=== PATIENT | male | born 1945 | race Caucasian/White ===

== ENCOUNTER 2016-07-14 11:11 | Outpatient (CLI) | payer MEDICARE, OTHER | END 2016-07-14 11:12 | disposition home or self-care (01) | DX: Z01.812 Encounter for preprocedural laboratory examination (principal); R73.09 Other abnormal glucose; N39.0 Urinary tract infection, site not specified ==

== ENCOUNTER 2016-10-27 09:07 | Outpatient (CLI) | payer MEDICARE, OTHER ==
[2016-10-27 12:38] LABS: BASOPHILS % (AUTO) 0.7 %; EOSINOPHILS # (AUTO) 0.1 10^3/uL (0.0-0.7); EOSINOPHILS % (AUTO) 2.9 %; HCT - HEMATOCRIT 32.8 % (42.0-52.0); HGB - HEMOGLOBIN 11.2 g/dL (14.0-18.0); LYMPHOCYTES # (AUTO) 1.1 10^3/uL (1.5-3.5); LYMPHOCYTES % (AUTO) 22.2 %; MEAN CORPUSCULAR HEMOGLOBIN 31.6 pg (27.0-31.0); MEAN CORPUSCULAR VOLUME 92.7 fL (80.0-94.0); MONOCYTES # (AUTO) 0.4 10^3/uL (0.0-1.0); MONOCYTES % (AUTO) 7.7 %; NEUTROPHILS # (AUTO) 3.4 10^3/uL (1.5-6.6); NEUTROPHILS % (AUTO) 66.5 %; RED BLOOD COUNT 3.53 10^6/uL (4.70-6.10); RED CELL DISTRIBUTION WIDTH 13.3 % (12.0-15.0); UNCORRECTED WHITE BLOOD COUNT 5.1 x10^3/uL; WHITE BLOOD COUNT 5.1 x10^3/uL (4.8-10.8)
[2016-10-27 12:43] LABS: ALBUMIN/GLOBULIN RATIO 1.2 (1.0-2.2); BILIRUBIN,TOTAL 0.5 mg/dL (0.2-1.0); CALCIUM 9.3 mg/dL (8.5-10.3); CREATININE 1.3 mg/dL (0.6-1.2); TOTAL PROTEIN 7.4 g/dL (6.7-8.2)
== END 2016-10-27 09:08 | disposition home or self-care (01) ==
LOC: LAB.WCP 09:07
PROVIDERS: ATTEND Physician Assistant Medical
DX: L30.9 Dermatitis, unspecified (principal); Z79.899 Other long term (current) drug therapy
CPT/HCPCS: 36415; 80053; 85025

== ENCOUNTER 2016-11-07 08:56 | Outpatient (CLI) | payer MEDICARE, OTHER ==
[2016-11-07 14:04] LABS: EOSINOPHILS # (AUTO) 0.1 10^3/uL (0.0-0.7); EOSINOPHILS % (AUTO) 1.9 %; HCT - HEMATOCRIT 33.1 % (42.0-52.0); HGB - HEMOGLOBIN 11.5 g/dL (14.0-18.0); IMMATURE RETIC FRACTION 0.55; LYMPHOCYTES % (AUTO) 22.3 %; MEAN CORPUSCULAR HEMOGLOBIN 32.1 pg (27.0-31.0); MEAN CORPUSCULAR HGB CONC 34.8 g/dL (32.0-36.0); MEAN CORPUSCULAR VOLUME 92.2 fL (80.0-94.0); MEAN PLATELET VOLUME 6.6 fL (7.4-11.4); MONOCYTES # (AUTO) 0.4 10^3/uL (0.0-1.0); MONOCYTES % (AUTO) 8.6 %; NEUTROPHILS # (AUTO) 2.9 10^3/uL (1.5-6.6); NEUTROPHILS % (AUTO) 66.2 %; NUCLEATED RED BLOOD CELLS AUTO 0.1 /100WBC; RED BLOOD COUNT 3.59 10^6/uL (4.70-6.10); RED CELL DISTRIBUTION WIDTH 13.1 % (12.0-15.0); UNCORRECTED WHITE BLOOD COUNT 4.4 x10^3/uL; WHITE BLOOD COUNT 4.4 x10^3/uL (4.8-10.8)
[2016-11-07 14:21] LABS: CALCIUM 9.6 mg/dL (8.5-10.3); POTASSIUM 4.3 mmol/L (3.5-5.0)
[2016-11-07 14:26] LABS: FERRITIN 446.8 ng/mL (23.9-336.2)
== END 2016-11-07 08:57 | disposition home or self-care (01) ==
LOC: LAB.WCP 08:56
PROVIDERS: ATTEND Physician Assistant Medical
DX: D64.9 Anemia, unspecified (principal)
CPT/HCPCS: 36415; 80048; 82607; 82728; 82746; 83540; 84466; 85025; 85044

== ENCOUNTER 2016-12-13 11:53 | Emergency (ER) | payer MEDICARE, OTHER ==
[~2016-12-13 11:53] MED LIST: DEXAMETHASONE 4 MG/ML VIAL IVP ONE; LIDOCAINE-MPF 2% 5 ML VIAL IM ONE; MIDAZOLAM 2 MG/2 ML VIAL IVP ONE; OXYTOCIN 10 UNIT/ML VIAL IV ONE; ROPIVACAINE 0.5% PF 20 ML AMPULE EP ONE; fentaNYL 100 MCG/2 ML VIAL IVP ONE
--- NOTE | 2016-12-13 12:11 | ED Physician Documentation ---
PD HPI UPPER EXT INJURY - Stated complaint Stated Complaint: FINGER LACERATION - Chief complaint Chief Complaint: Ext Problem - History obtained from History obtained from: Patient - History of Present Illness Location: Left, Finger (index and middle) Where injury occurred: Home Timing - onset: How many hours ago (1), Today (he was using band saw and accidentally got fingers in the way with laceration to the index and middle fingers.) Timing - details: Abrupt onset, Still present Worsened by: Palpating Contributing factors: No: Anticoagulated Similar symptoms before: Has not had sx before Recently seen: Not recently seen Review of Systems Cardiac: denies: Chest pain / pressure Respiratory: denies: Dyspnea GI: denies: Vomiting, Diarrhea Neurologic: denies: Difficulty speaking, Near syncope PD PAST MEDICAL HISTORY - Past Medical History Cardiovascular: Hypertension, High cholesterol Respiratory: Asthma Endocrine/Autoimmune: None, Type 2 diabetes GI: None : None HEENT: None Psych: None Musculoskeletal: Osteoarthritis, Other Derm: None - Past Surgical History Past Surgical History: Yes General: Other - Present Medications Home Medications: Ambulatory Orders Medication Instructions Recorded Confirmed Albuterol Sulfate [Albuterol 1 puffs INH ONCE PRN 11/10/13 12/13/16 Sulfate Hfa] Cetirizine [ZyrTEC] 10 mg PO DAILY 11/10/13 12/13/16 Lisinopril 10 mg PO DAILY 11/10/13 12/13/16 Montelukast [Singulair] 10 mg PO DAILY 11/10/13 12/13/16 Aspirin [Aspirin EC] 81 mg PO DAILY 02/24/16 12/13/16 Atorvastatin [Lipitor] 1 tab PO DAILY 02/24/16 12/13/16 Calcium Carbonate/Vitamin D3 1 tab PO DAILY 02/24/16 12/13/16 [Calcium 500-Vit D3 200 Tablet] [place]-3/Dha/Epa/Fish Oil [Fish Oil 1 tab PO DAILY 02/24/16 12/13/16 1,000 mg Softgel] metFORMIN [Glucophage] 1 tab PO DAILY 02/24/16 12/13/16 Cephalexin [Keflex] 500 mg PO QID #24 capsule 12/13/16 HYDROmorphone [Dilaudid] 2 mg PO Q6H PRN #15 tablet 12/13/16 - Allergies Allergies/Adverse Reactions: Allergies Allergy/AdvReac Type Severity Reaction Status Date / Time oxycodone Allergy Hives Verified 12/13/16 12:09 - Social History Does the pt smoke?: No Smoking Status: Never smoker Does the pt drink ETOH?: Yes Does the pt have substance abuse?: No PD ED PE NORMAL - Vitals Vital signs reviewed: Yes - General General: Alert and oriented X 3, Well developed/nourished - Neck Neck: Supple, no meningeal sign, No adenopathy - Cardiac Cardiac: RRR, No murmur - Respiratory Respiratory: Clear bilaterally - Derm Derm: Normal color, Warm and dry - Extremities Extremities: Other (left index finger with laceration dorsal through soft tissue and bone at middle phalanx. The volar tissue is intact with sensation present in finger tip both sides. Also color and cap refill okay in tip. The middle finger with lac dorsal middle phalanx through soft tissue (skin and into tendon) but not bone. with weak extension of the finger. No FB seen. ) - Neuro Neuro: No sensory deficit Results - Vitals Vitals: Vital Signs - 24 hr 12/13/16 12/13/16 12/13/16 11:59 13:37 15:02 Temperature 36.9 C 36.5 C 36.3 C L Heart Rate 90 72 67 Respiratory 16 18 18 Rate Blood Pressure 185/93 H 136/73 H 123/67 O2 Saturation 96 98 98 12/13/16 15:09 Temperature Heart Rate 73 Respiratory 16 Rate Blood Pressure 123/67 O2 Saturation 97 Oxygen O2 Source Room air - Rads (name of study) fingers Radiology: Prelim report reviewed, EMP read contemporaneously (transection through middle phalanx indesx finger. No bony injury to middle finger. ) Procedures - Laceration (location) left index and middle fingers Length in cm: 3 Wound type: Linear, Clean, Other (index finger lac through dorsal tendons at middle phalanx, through bone, but not through volar tissue, with good color and cap refill at tip of finger. Middle finger lac through ext tendons but not bone. ) Anesthesia: Marcaine 0.5% (MCP block with good effect) Wound Preparation: Irrigated copiously NS, Wound explored. No: FB identified Skin layer closure: Nylon, Interrupted (5 spaced sutures to just approximate the wounds and provide some structure to the finger, to close until OR tomorrow. ) Other: Patient tolerated well, Tetanus booster given Complexity: Simple PD MEDICAL DECISION MAKING - ED course Complexity details: considered differential, d/w patient, d/w analysis consultant (Dr. Barron, who saw patient and xrays in ED. Advises good cleaning and loose closure for here in ED and is setting him up for OR in the AM. ) Departure - Departure Disposition: 01 Home, Self Care Clinical Impression: Finger laceration involving tendon Qualifiers: Encounter type: initial encounter Qualified Code(s): S61.219A - Laceration without foreign body of unspecified finger without damage to nail, initial encounter Finger fracture, left Qualifiers: Encounter type: initial encounter Finger: index finger Fracture type: open Phalanx: middle Fracture alignment: displaced Qualified Code(s): S62.621B - Displaced fracture of middle phalanx of left index finger, initial encounter for open fracture Condition: Stable Record reviewed to determine appropriate education?: Yes Instructions: ED Fx Finger Open Follow-Up: Warner Barron MD [Provider Admit Priv/Credential] - Prescriptions: Cephalexin [Keflex] 500 mg PO QID #24 capsule HYDROmorphone [Dilaudid] 2 mg PO Q6H PRN #15 tablet PRN Reason: Pain Comments: Keep fingers dressed and splinted overnight. Come in tomorrow for surgery with Dr. Barron as scheduled with him. Nothing to eat or drink after midnight except for small sips of water with your morning medications. Use Tylenol as you normally do. Add Dilaudid if needed for pain. Do not use any aspirin or ibuprofen overnight. Use the cephalexin antibiotic this evening and in the morning. Discharge Date/Time: 12/13/16 15:15
[2016-12-13] MEDS ORDERED: BUPIVACAINE 0.5% PF 30 ML VIAL ONE (12:24)
[2016-12-13] MEDS ORDERED: cefTRIAXone 1 GM VIAL ONE ×2 (12:31→12:42)
[2016-12-13] MEDS ORDERED: TETANUS/DIPHTHERIA/PERTUSSIS 0.5 ML SYRINGE IM ONE (12:32)
[2016-12-13] MEDS ORDERED: SODIUM CHLORIDE FLUSH 0.9% 10 ML SYRINGE IVP ONE (12:32)
[2016-12-13] MEDS: ceFAZolin 1 GM in SODIUM CHLORIDE 0.9% MINIBAG 100 ML IV ONE (12:33)
[2016-12-13] MEDS: TETANUS/DIPHTHERIA/PERTUSSIS 0.5 ML SYRINGE IM ONE (12:34)
[2016-12-13] MEDS: BUPIVACAINE 0.5% PF 30 ML VIAL SUBQ STA (12:35)
[2016-12-13] MEDS ORDERED: ceFAZolin 1 GM VIAL ONE ×2 (13:04→14:42)
--- NOTE | 2016-12-13 13:29 | XRAY Preliminary Report ---
Exam: XR Finger(s) LT IMPRESSION: 1. Complete transection of the proximal aspect of index finger middle phalanx consistent with the his tory of saw injury, with substantial displacement, rotation and moderate foreshortening with severe a ssociated soft tissue injury (open fracture). Minimal comminution, as above. 2. Mild bony deformity and focal lucency within the third digit distal phalanx with associated soft t issue defect, suspicious for acute bony injury (open injury). See above discussion. [facility] SITE ID: [id number]
--- NOTE | 2016-12-13 13:32 | XRAY Report ---
EXAM: LEFT SECOND AND THIRD DIGIT RADIOGRAPHY EXAM DATE: 12/13/2016 01:02 PM. CLINICAL HISTORY: Saw injury to fingers. COMPARISON: None. TECHNIQUE: 3 views. FINDINGS: Bones: Well-defined fracture/transection of the proximal aspect of the second digit middle phalanx is consistent with a history of saw injury. Substantial associated palmar displacement, rotation and so me foreshortening of the distal component. Minimal tiny fracture fragments demonstrated along the mar gin of the base of the proximal phalanx. Focal lucency involving the proximal aspect of the third digit distal phalanx and some bony deformity . The distal phalanx is not optimally profiled and some of this could represent chronic change such a s remote fracture. However, there is apparent dorsal soft tissue defect and therefore this is suspici ous for bony injury. Discrete displaced fragments not demonstrated. Joints: Normal. No subluxations. Soft Tissues: Severe soft tissue injury/laceration of index finger and soft tissue injury of the dors al aspect of the distal third finger. IMPRESSION: 1. Complete transection of the proximal aspect of index finger middle phalanx consistent with the his tory of saw injury, with substantial displacement, rotation and moderate foreshortening with severe a ssociated soft tissue injury (open fracture). Minimal comminution, as above. 2. Mild bony deformity and focal lucency within the third digit distal phalanx with associated soft t issue defect, suspicious for acute bony injury (open injury). See above discussion. [facility] Referring Provider Line: [phone] SITE ID: [id number]
[2016-12-13] MEDS ORDERED: ceFAZolin 1 GM in SODIUM CHLORIDE 0.9% MINIBAG 100 ML IV ONE (14:05)
[2016-12-13 15:03] VITALS: BP 123/67
== END 2016-12-13 15:15 | disposition home or self-care (01) ==
LOC: ED 11:53
DX: S62.621B Displaced fracture of middle phalanx of left index finger, initial encounter for open fracture (principal); W31.82XA Contact with other commercial machinery, initial encounter; Y93.89 Activity, other specified; Y92.009 Unspecified place in unspecified non-institutional (private) residence as the place of occurrence of the external cause; I10 Essential (primary) hypertension; E78.00 Pure hypercholesterolemia, unspecified; E11.8 Type 2 diabetes mellitus with unspecified complications; Z79.84 Long term (current) use of oral hypoglycemic drugs; Z79.82 Long term (current) use of aspirin; Z23 Encounter for immunization
CPT/HCPCS: 12002; 73140; 90471; 96365; 99283

== ENCOUNTER 2016-12-14 09:06 | Day surgery (SDC) | payer MEDICARE, OTHER ==
[~2016-12-14 09:06] MED LIST changes: -DEXAMETHASONE 4 MG/ML VIAL IVP ONE; +LACTATED RINGERS 1,000 ML IV ONE; -LIDOCAINE-MPF 2% 5 ML VIAL IM ONE; -MIDAZOLAM 2 MG/2 ML VIAL IVP ONE; -OXYTOCIN 10 UNIT/ML VIAL IV ONE; -ROPIVACAINE 0.5% PF 20 ML AMPULE EP ONE; +ceFAZolin 2 GM/50 ML 2 GM/50 ML BAG IV ONE; -fentaNYL 100 MCG/2 ML VIAL IVP ONE
--- NOTE | 2016-12-14 11:47 | XRAY Report ---
TWO-VIEW INTRAOPERATIVE LEFT INDEX FINGER: 12/14/2016 CLINICAL INDICATION: Fracture fixation. FINDINGS: Frontal and lateral intraoperative matrix images demonstrate K-wire fixation of the left i ndex finger, with near anatomic alignment. Three seconds of fluoroscopy time was provided to Dr. Barron; 2 spot images obtained. IMPRESSION: DOCUMENTATION OF FRACTURE FIXATION. JOB #: [id number] EXT JOB #:[id number]
[2016-12-14] MEDS ORDERED: ACETAMINOPHEN 1,000 MG/100 ML 100 ML IV ONE (12:18)
[2016-12-14 12:58] VITALS: BP 136/72
--- NOTE | 2016-12-14 13:23 | OPERATIVE REPORT ---
DATE OF SURGERY: 12/14/2016 00:00:00 PREOPERATIVE DIAGNOSES 1. Grade 2 open fracture of left index finger middle phalanx secondary to a band saw injury. 2. Laceration of the extensor tendons, left index finger. 3. Laceration, left middle finger, down to the extensor tendon mann. POSTOPERATIVE DIAGNOSES 1. Grade 2 open fracture of left index finger middle phalanx secondary to a band saw injury. 2. Laceration of the extensor tendons, left index finger. 3. Laceration, left middle finger, down to the extensor tendon mann. NAME OF PROCEDURE 1. Incision and drainage of the left index finger (excisional down to and including bone). 2. Open reduction internal fixation (pinning) left index finger. 3. Repair of the extensor mechanism, left index finger. 4. Incision and drainage and excisional debridement of the left middle finger, including skin, subcut aneous tissue and tendon. SURGEON: Warner Barron MD ANESTHESIA: General endotracheal with supraclavicular block. ASSISTANTS: None. FINDINGS: Relatively clean wounds, adhesions to the flexor good consistent with patient reported prev ious finger injuries. COMPLICATIONS: None. TOURNIQUET TIME: 32 minutes at 275 mmHg to the left arm without complications. BLOOD LOSS: 50 mL. SPECIMEN REMOVED AND CULTURES: None. CONDITION AT END OF PROCEDURE: Stable. DISPOSITION: PACU, then home. INDICATIONS: This is a 71-year-old male who was using a band saw at his home yesterday when he caught his index and middle fingers of his left nondominant hand in the band saw, resulting in a nearly thr [id number] laceration to the middle phalanx of the left index finger and over the middle phalan x of the left middle finger. The laceration extended through the middle phalanx bone and down to the flexor tendons without damaging the flexor tendons. The neurovascular bundles appeared to be intact. There did seem to be a hypoesthesia on the radial side of the index finger but good capillary refill of the digit, and the patient reported sensation to the tip of the finger. Options were discussed with the patient. We performed a thorough washout of the digits in the emergen cy room and tacked the wounds closed and scheduled him for an I and D today. PROCEDURE IN DETAIL: After consent and identification, the patient was brought to the operating room and placed in a supine position on the operating litter. After induction of MAC anesthesia and a supr aclavicular block with appropriate monitoring, the left arm was outstretched on a hand table. The lef t upper extremity was then prepped and draped free with a padded tourniquet to the proximal arm. We elected not to inflate the tourniquet until after performing our I and D because we wanted to see that there was adequate bleeding and blood supply to the tip of the finger. After an appropriate time out, we began by removing the sutures to the index and middle fingers. We opened the wounds and perfo rmed a thorough debridement with rongeur, curet, #15 blade scalpel and irrigation with a total of 6 L of sterile saline to both the ring and middle fingers, the first 3 L containing 5 mL of chlorhexidin e. After thorough irrigation and debridement a 0.062 K-wire was inserted in an antegrade fashion through the distal portion of the middle phalanx out through the distal phalanx and out through the tip of t he index finger just under the nail bed. With the tip of the K-wire drawn flush to the fracture site of the middle phalanx, we approximated the fracture and drilled the pin in a retrograde fashion throu gh the proximal end of the middle phalanx and to the proximal end of the proximal phalanx. This posit ion was verified as anatomic on both AP and lateral fluoroscopy. We then extended the oblique laceration in a flap-like fashion in an oblique fashion from the dorsoul naomi aspect of the middle phalanx laceration distally over the distal phalanx. We extended the proxima l flap from the dorsoradial aspect of the middle phalanx proximally and ulnarly over the proximal pha lanx. These 2 flaps were elevated to allow us to expose the lacerated ends of the extensor tendons. We used a 3-0 nylon suture in a modified Miller stitch through the extensor tendon remnant over the p roximal phalanx. We noted a significant amount of adhesion, which was consistent with the patient's d escription of previous finger injuries. A 3-0 nylon suture was also placed through the remnant of the distal end of the extensor tendon. These 2 sutures were then tied off, approximating the ends of the extensor tendon mechanism. We irrigated the wound and then closed with a running interlocked 4-0 nyl on suture and 4-0 nylon corner stitches to repair the flaps and the obliquus laceration over the midd le phalanx of the index finger. We then used a running 4-0 nylon suture after debriding down to the level of the tendon and removing ratty ends of partially lacerated tendon with a 15 blade scalpel. After both wounds had been approxim ated, we dressed both wounds with Xeroform gauze, folded 4 x 4's and a tube gauze dressing. Jurgan ball was placed over the end of the 0.062 K-wire in the index finger, and the K-wire was cut f lush with the Jurgan ball. On completion of the procedure, the patient was transferred to the recovery room in good condition scott dewayneg tolerated the procedure well. JOB #: [id number] EXT JOB #:[id number]
== END 2016-12-14 09:07 | disposition home or self-care (01) ==
LOC: SDS 09:06
PROVIDERS: ATTEND Orthopaedic Surgery
PROC: 0PBV0ZZ Excision of Left Finger Phalanx, Open Approach (ICD-10-PCS; 2016-12-14)
PROC: 0PSV04Z Reposition Left Finger Phalanx with Internal Fixation Device, Open Approach (ICD-10-PCS; principal; 2016-12-14 09:30)
PROC: 0LQ80ZZ Repair Left Hand Tendon, Open Approach (ICD-10-PCS; 2016-12-14 09:30)
DX: S62.621B Displaced fracture of middle phalanx of left index finger, initial encounter for open fracture (principal); S61.213A Laceration without foreign body of left middle finger without damage to nail, initial encounter; W31.2XXA Contact with powered woodworking and forming machines, initial encounter; R73.03 Prediabetes
CPT/HCPCS: 11012; 11043; 26418; 26735; 73140; C1713; J0131; J0690; J7120

== ENCOUNTER 2017-04-20 08:00 | Outpatient (CLI) | payer MEDICARE, OTHER ==
[2017-04-20 13:38] LABS: HB2 TOTAL 14.2 g/dL; HEMOGLOBIN A1C 0.7 g/dL; HEMOGLOBIN A1C % 6.7 % (4.6-6.2)
== END 2017-04-20 23:59 | disposition home or self-care (01) ==
LOC: LAB.WCP 08:00
PROVIDERS: ATTEND Family Medicine
DX: E11.9 Type 2 diabetes mellitus without complications (principal)
CPT/HCPCS: 36415; 83036

== ENCOUNTER 2017-12-04 06:10 | Day surgery (SDC) | payer MEDICARE, OTHER ==
[2017-12-04] MEDS ORDERED: LACTATED RINGERS 1,000 ML IV ONE (06:19)
[2017-12-04] MEDS ORDERED: BUPIVACAINE 0.5% PF 30 ML VIAL ONE (06:49)
--- NOTE | 2017-12-04 06:52 | ANESTHESIA ---
Pre-Anesthesia VS, & Labs - Diagnosis umbilical hernia - Procedure umbilical hernia repair Vital Signs: Temp Pulse Resp BP Pulse Ox 36.2 C L 59 L 18 140/78 H 97 12/04/17 06:29 12/04/17 06:29 12/04/17 06:29 12/04/17 06:29 12/04/17 06:29 Height 5 ft 9 in Weight (kg) 106 kg Body Mass Index 33.3 - NPO >8 hours - Lab Results Current Lab Results: Laboratory Tests 12/04/17 06:37: POC Whole Bld Glucose 125 H Home Medications and Allergies Home Medications: Ambulatory Orders Medication Instructions Recorded Confirmed Acetaminophen [Tylenol Extra 500 mg PO TID 12/03/17 12/04/17 Strength] Albuterol Sulfate [Proair Hfa 1 - 2 puffs INH Q4H PRN 12/03/17 12/04/17 Inhaler] Aspirin [Aspirin EC] 81 mg PO DAILY 12/03/17 12/04/17 Atorvastatin [Lipitor] 10 mg PO DAILY 12/03/17 12/04/17 Cetirizine [ZyrTEC] 10 mg PO DAILY 12/03/17 12/04/17 Lisinopril/Hydrochlorothiazide 1 each PO DAILY 12/03/17 12/04/17 [Lisinopril-Hctz 10-12.5 mg Tab] Metformin HCl [Fortamet] 500 mg PO DAILY 12/03/17 12/04/17 Montelukast [Singulair] 10 mg PO QPM 12/03/17 12/04/17 Acetaminophen [Tylenol Extra Strength] 500 mg PO TID 12/03/17 Albuterol Sulfate [Proair Hfa Inhaler] 1 - 2 puffs INH Q4H PRN 12/03/17 Aspirin [Aspirin EC] 81 mg PO DAILY 12/03/17 Atorvastatin [Lipitor] 10 mg PO DAILY 12/03/17 Cetirizine [ZyrTEC] 10 mg PO DAILY 12/03/17 Lisinopril/Hydrochlorothiazide [Lisinopril-Hctz 10-12.5 mg Tab] 1 each PO DAILY 12/03/17 Metformin HCl [Fortamet] 500 mg PO DAILY 12/03/17 Montelukast [Singulair] 10 mg PO QPM 12/03/17 Allergies/Adverse Reactions: Allergies Allergy/AdvReac Type Severity Reaction Status Date / Time bee venom protein (honey bee) Allergy Anaphylaxis Verified 12/03/17 10:39 oxycodone Allergy Hives Verified 12/03/17 10:39 Anes History & Medical History - Anesthetic History Anesthesia Complications: reports: No previous complications Family history of Anesthesia Complications: Denies Family history of Malignant Hyperthermia: Denies - Medical History Cardiovascular: reports: Hypertension, High cholesterol Pulmonary: reports: Asthma Gastrointestinal: reports: None Urinary: reports: Renal insuffiency Musculoskeletal: reports: Osteoarthritis, Chronic back pain Endocrine/Autoimmune: reports: Type 2 diabetes Skin: reports: None Smoking Status: Never smoker - Surgical History General: Appendectomy, Other Eyes Ears Nose Throat (EENT): Tonsil/Adenoidectomy Orthopedic: Knee replacement Exam General: Alert, Oriented x3, Cooperative, No acute distress Dental: Other (bridge) Mouth Openin Fingerbreadth Neck Mobility: Normal Mallampati classification: II Thyromental Distance: 4-6 cm Respiratory: Lungs clear, Normal breath sounds, No respiratory distress, No accessory muscle use Cardiovascular: Regular rate, Normal S1, Normal S2, No murmurs Mental/Cognitive Status: Alert/Oriented X3, Normal for patient Cognitive Status: Within normal limits Plan Anesthesia Type: General Consent for Procedure(s) Verified and Reviewed: Yes Code Status: Attempt Resuscitation ASA classification: 2-Mild systemic disease Is this case an emergency?: No
--- NOTE | 2017-12-04 07:43 | SURGERY HX AND PHYSICAL(T) ---
Surgical History & Physical - PMH/PSH/Social Hx Does the pt have a hx of MRSA?: No Eyes, Ears, Nose, Throat: Chronic sinusitis Cardiovascular: Hypertension, High cholesterol Respiratory: Asthma Skin: None Endocrine/Autoimmune: Type 2 diabetes Gastrointestinal: None Urinary: Renal insuffiency Musculoskeletal: Osteoarthritis, Chronic back pain Psychiatric: None General: Appendectomy, Other Orthopedic: Knee replacement Eyes Ears Nose Throat (EENT): Tonsil/Adenoidectomy Smoking Status: Never smoker Does the pt drink ETOH?: Yes Frequency: Daily Number: 2 Does the pt have substance abuse?: No - Home Meds and Allergies Home Medications: Acetaminophen [Tylenol Extra Strength] 500 mg PO TID 12/03/17 Albuterol Sulfate [Proair Hfa Inhaler] 1 - 2 puffs INH Q4H PRN 12/03/17 Aspirin [Aspirin EC] 81 mg PO DAILY 12/03/17 Atorvastatin [Lipitor] 10 mg PO DAILY 12/03/17 Cetirizine [ZyrTEC] 10 mg PO DAILY 12/03/17 Lisinopril/Hydrochlorothiazide [Lisinopril-Hctz 10-12.5 mg Tab] 1 each PO DAILY 12/03/17 Metformin HCl [Fortamet] 500 mg PO DAILY 12/03/17 Montelukast [Singulair] 10 mg PO QPM 12/03/17 Allergies/Adverse Reactions: Allergies Allergy/AdvReac Type Severity Reaction Status Date / Time bee venom protein (honey bee) Allergy Anaphylaxis Verified 12/03/17 10:39 oxycodone Allergy Hives Verified 12/03/17 10:39 - Vital Signs Heart Rate: 59 Blood Pressure: 140/78 Temperature: 36.2 C Respiratory Rate: 18 O2 Saturation: 97 Weight (kg): 106 kg Height: 1.75 m - Patient Review Patient Review: Problems were reviewed with the patient during this visit. Medications were reviewed with the patient during this visit. Allergies were reviewed this patient during this visit. Pertinent Tests Reviewed: All pertitent test for this patient were reviewed. - Assessment & Plan Assessment and Plan: Visit Type: Initial Consult Primary Provider: Franco Cool MD History of Present Illness: Patient is here today for umbilical hernia. ...................................................................Lavell Flores RN October 31, 2017 1:[address] Bradley Cool initially sent this very pleasant 72-year-old male to our office on consultation for evaluation and treatment of a umbilical hernia back on October 31, 2017. Because more than 30 days were allowed to elapse between the time that the patient was seen in the time of the procedure this update to his history and physical is mandated. The patient states that he had noticed a bulge and discomfort and with time the bulge and discomfort has been slowly getting worse. It was first noted many years ago. Lifting and straining or aggravating factors whereas lying down is an alleviating factor. The patient de nies increased coughing, or difficulty with urination or constipation. Whereas it is become more symptomatic the patient wishes to have it repaired. Current Allergies: * BEES (Critical) * DUST, POLLEN, SMOKE (Critical) OXYCODONE HCL (Critical) * GRASSES, SPECIFIC HAY, WHEAT (Critical) Current Meds: LISINOPRIL-HYDROCHLOROTHIAZIDE 10-12.5 MG ORAL TABLET (LISINOPRIL- HYDROCHLOROTHIAZIDE) Take one tablet by mouth daily LIPITOR 10 MG ORAL TABLET (ATORVASTATIN CALCIUM) Take one tablet by mouth at bedtime METFORMIN HCL ER 500 MG ORAL TABLET EXTENDED RELEASE 24 HOUR (METFORMIN HCL) Take one tablet by mouth daily. ASPIRIN EC 81 MG ORAL TABLET DELAYED RELEASE (ASPIRIN) Take one tablet by mouth daily ZYRTEC ALLERGY 10 MG ORAL TABLET (CETIRIZINE HCL) Take one tablet by mouth daily SINGULAIR 10 MG ORAL TABLET (MONTELUKAST SODIUM) Take one tablet by mouth daily PROAIR HFA 108 (90 Base) MCG/ACT INHALATION AEROSOL SOLUTION (ALBUTEROL SULFATE) Inhale two actuations every three to four hours as needed for wheezing TYLENOL EXTRA STRENGTH 500 MG ORAL TABLET (ACETAMINOPHEN) Take one tablet by mouth three times daily as needed for pain or fever FREESTYLE FREEDOM KIT (BLOOD GLUCOSE MONITORING SUPPL) Glucometer for DM2 - test blood sugars four times daily FREESTYLE TEST IN VITRO STRIP (GLUCOSE BLOOD) Test blood sugar four times daily for diabetes . Past Medical History: HYPERTENSION, BENIGN ESSENTIAL (ICD-401.1) ([id number]) DYSLIPIDEMIA (ICD-272.9) (JVS12-W10.9) HYPERGLYCEMIA (ICD-790.6) DERMATITIS, ALLERGIC (ICD-692.9) (IDM84-N21.9) ASTHMA (ICD-493.90) (ODC58-R54.909) BRONCHITIS, ALLERGIC (ICD-493.90) (TYZ07-R84.909) ALLERGIC RHINITIS (ICD-477.9) (TBP98-M49.9) SCIATICA, RIGHT (ICD-724.3) (UPE81-H91.30) BACK PAIN, CHRONIC (ICD-724.5) (UEU42-D65.89) Past Surgical History: Appendectomy Tonsillectomy R inguinal herniorraphy September 22, 2016 - left TKR Denies any prior history of complications from anesthesia. Denies any history of surgical complications. Family History Summary: Father (biol.) - Has a father - Entered On: 03/03/2014 Mother (biol.) - Has Family History of Asthma - Entered On: 03/15/2016 Mother (biol.) - Has Family History of Diabetes - Entered On: 03/15/2016 Mother (biol.) - Has Family History of Other Medical Problems - Diabetes - Entered On: 10/31/2017 General Comments - FH: Dad in 90s of dementia Mom had UT and in her 80s Risk Factors: Smoked Tobacco Use: Never smoker Smokeless Tobacco Use: Never Passive smoke exposure: no Drug use: no HIV high-risk behavior: no Caffeine use: 5 drinks per day Alcohol use: yes Type: Occasionally Counseled to quit/cut down alcohol use: no Exercise: no Seatbelt use: 100 % Sun Exposure: occasionally Family History Risk Factors: Family History of UT in females < 65 years old: no Family History of UT in males < 55 years old: no Review of Systems CONSTITUTIONAL: No weight loss, fever, chills, weakness or fatigue. HEENT: Eyes: No visual loss, blurred vision, double vision or yellow sclerae. Ears, Nose, Throat: No hearing loss, sneezing, congestion, runny nose or sore throat. SKIN: No rash or itching. CARDIOVASCULAR: No chest pain, chest pressure or chest discomfort. No palpitations or edema. RESPIRATORY: No shortness of breath, cough or sputum. GASTROINTESTINAL: No anorexia, nausea, vomiting or diarrhea. No abdominal pain or blood. GENITOURINARY: No dysuria. NEUROLOGICAL: No headache, dizziness, syncope, paralysis, ataxia, numbness or tingling in the extremities. No change in bowel or bladder control. MUSCULOSKELETAL: No muscle, back pain, joint pain or stiffness. HEMATOLOGIC: No anemia, bleeding or bruising. LYMPHATICS: No enlarged nodes. No history of splenectomy. PSYCHIATRIC: No history of depression or anxiety. ENDOCRINOLOGIC: No reports of sweating, cold or heat intolerance. No polyuria or polydipsia. ALLERGIES: No history of asthma, hives, eczema or rhinitis. Physical Exam General: Evaluated in bed 1 at [facility]'s personal care service provider unit, 72-year old obese male, appears stated age, well developed, well nourished HEENT: Normocephalic, atraumatic, extraocular movement intact, mucous membranes pink and moist, sclera anicteric and not injected, mello hair raza and mustache Neck: Supple without pain on palpation, mass or bruit Cardiac: Regular rate and rhythm without rub, gallop, or murmur Chest: Clear to auscultation bilaterally Abdomen: Soft, nontender, normoactive bowel sounds, no hepatomegaly, no splenomegaly, moderately sized slightly supraumbilical umbilical hernia, reducible Genitourinary: Deferred Rectal: Deferred Extremities: No gross neurovascular problem, no clubbing, cyanosis or edema Gait: No gross motor deficit Psychiatric: Alert and oriented to person place and time, asks and answers questions appropriately, mood and affect appropriate Assessment and Plan: Umbilical hernia. Umbilical herniorrhaphy likely with or without mesh. The indications, procedure, alternatives including not repairing the hernia, and risks including but not limited to infection, bleeding, nerve injury, and were fully explained to the patient and all questions were fully answered. In the office I william pictures describing what a hernia is and the various ways the hernia can be repaired. In the office I discussed the pros and cons of differing herniorrhaphies. I explained that following the surgery I did not want him lifting anything over 15 pounds for 6 weeks to allow the area to heal optimally and decrease the likelihood that the hernia would recur. Verbal and written consent was obtained. The patient in preparation for his surgery has been nothing by mouth, has received a soap water shower, and will receive 3 g of Ancef preoperatively for prophylaxis against surgical infection. I also asked the patient to let me know if there is any way we can make his stay at [facility] more comfortable and he stated that he would let me know. 20 minutes of [id number] time spent with the patient, the majority of which was spent in discussion, coordination of care, and completion of the requisite paperwork
[2017-12-04] MEDS ORDERED: BUPIVACAINE 0.5% PF 30 ML VIAL SUBQ ONE ×2 (07:55)
[2017-12-04] MEDS ORDERED: ceFAZolin 3 GM in SODIUM CHLORIDE 0.9% 100ML 100 ML IV ONE (08:00)
[2017-12-04] MEDS ORDERED: ONDANSETRON 4 MG/2 ML VIAL IVP PRN (08:21)
[2017-12-04] MEDS ORDERED: HYDROmorphone 0.5 MG/0.5 ML SYRINGE IVP PRN (08:21)
[2017-12-04] MEDS ORDERED: HYDROcod/ACETAM 5/325 MG TABLET PO PRN (08:21)
[2017-12-04] MEDS ORDERED: LIDOCAINE-MPF 2% 5 ML VIAL IM ONE (08:30)
[2017-12-04] MEDS ORDERED: fentaNYL 100 MCG/2 ML VIAL IVP ONE (08:30)
[2017-12-04] MEDS ORDERED: MIDAZOLAM 2 MG/2 ML VIAL IVP ONE (08:30)
[2017-12-04] MEDS ORDERED: PROPOFOL 200 MG/20 ML VIAL IVP ONE (08:30)
[2017-12-04] MEDS ORDERED: KETOROLAC 30 MG/ML VIAL IVP ONE (08:30)
--- NOTE | 2017-12-04 08:34 | OPERATIVE REPORT ---
Operative Report - General Procedure Date: 12/04/17 Planned Procedure: Umbilical herniorrhaphy with mesh Pre-Op Diagnosis: Umbilical hernia Procedure Performed: Umbilical herniorrhaphy with mesh Post Op Diagnosis: Umbilical hernia - Procedure Note Primary Surgeon: Joesph Ojeda MD Anesthesia Provider: Silverio Bowman CRNA Anesthesia Technique: Local (30 mL of half percent Marcaine), MAC IV Fluids (mL): 300 Estimated Blood Loss (mL): 5 Complications: None. - Other Other Information/Narrative: OPERATIVE DESCRIPTION/REPORT: After verbal and written informed consent was obtained detailing the risks of infection, bleeding requiring transfusion with its risks, nerve injury, and , and after I met with the patient confirming the surgery and the site of the surgery, the patient was brought to the operative suite and placed supine on the operating table. Great care was taken to avoid pressure points to prevent pressure necrosis or nerve injury. Monitoring devices were applied along with TEDs and pneumatic compressive stockings (to prevent DVT). The patient received preoperative antibiotics for surgical prophylaxis. Silverio Bowman CRNA sedated and anesthetized the patient for the entire procedure. The patient was prepped and draped in the usual sterile manner. With the patient draped my initials were clearly visible. A "time in" then confirmed that the paitient was identified with 3 identifiers (name, birthdate and medical record number), the history and physical was in the chart, the signed consent confirming the procedure was in the chart, the patient was in the correct position, the aforementioned prophylactic measures were in place or given, we had the correct personnel and equipment to complete the procedure and that anesthesia, surgery and nursing were given an opportunuty to express any concerns. With the agreement of everyone in the room, we proceeded with the operation. After injecting the area with % Marcaine, a standard curvilinear umbilical incision was made and dissection was carried down to the hernia sac using a combination of Metzenbaum scissors and Bovie electrocautery. The sac was cleared of overlying adherent tissue, and the fascial defect was delineated. The fascia was cleared of any adherent tissue for a distance 1.5 cm from the defect. The sac was placed back into the abdomen. The defect was closed using a 3.2 inch (8 cm) in diameter Ventralex ST hernia patch (reference #[id number], Lot number [id number], use by date 2019-10-07). This was secured to the fascia using interrupted 2-0 PDS sutures superiorly and inferiorly utilizing the straps and trimming the excess strap. Laterally I placed 2 2-0 PDS for additional support. The patient was then given an ``innie by suturing the back of the umbilicus to the fascia using a 2-0 Vicryl. Meticulous hemostasis was obtained using Bovie electrocautery. The skin incision was approximated with a running subcuticular 4-0 Monocryl. After the prep was washed off, benzoin and steristrips were applied. A dressing was then applied. At this point a time out was performed that confirmed that all the counts were correct, the procedure that was performed, the blood loss, the IV fluids administered, and the patients condition. Having tolerated the procedure well, the patient was subsequently taken to recovery room in good and stable condition.
[2017-12-04] MEDS ORDERED: HYDROcod/ACETAM 5/325 MG TABLET ONE (08:53)
[2017-12-04 09:51] VITALS: BP 124/70
== END 2017-12-04 06:11 | disposition home or self-care (01) ==
LOC: SDS 06:10
PROVIDERS: ATTEND Surgery
PROC: 0WUF0JZ Supplement Abdominal Wall with Synthetic Substitute, Open Approach (ICD-10-PCS; principal; 2017-12-04 07:30)
DX: K42.9 Umbilical hernia without obstruction or gangrene (principal); I10 Essential (primary) hypertension; J45.909 Unspecified asthma, uncomplicated; E11.9 Type 2 diabetes mellitus without complications; N28.9 Disorder of kidney and ureter, unspecified; E78.5 Hyperlipidemia, unspecified
CPT/HCPCS: 49585; A9270; C1781; J7120

== ENCOUNTER 2018-05-06 08:00 | Outpatient (CLI) | payer MEDICARE, OTHER ==
[2018-05-06 12:37] LABS: BASOPHILS % (AUTO) 0.9 %; EOSINOPHILS # (AUTO) 0.1 10^3/uL (0.0-0.7); EOSINOPHILS % (AUTO) 2.7 %; HGB - HEMOGLOBIN 14.1 g/dL (14.0-18.0); LYMPHOCYTES # (AUTO) 1.1 10^3/uL (1.5-3.5); LYMPHOCYTES % (AUTO) 27.8 %; MEAN CORPUSCULAR HEMOGLOBIN 33.5 pg (27.0-31.0); MEAN CORPUSCULAR HGB CONC 35.2 g/dL (32.0-36.0); MEAN CORPUSCULAR VOLUME 95.2 fL (80.0-94.0); MONOCYTES # (AUTO) 0.4 10^3/uL (0.0-1.0); MONOCYTES % (AUTO) 10.4 %; NEUTROPHILS # (AUTO) 2.3 10^3/uL (1.5-6.6); NEUTROPHILS % (AUTO) 58.2 %; PLT - PLATELET COUNT 196 10^3/uL (130-450); RED BLOOD COUNT 4.21 10^6/uL (4.70-6.10); RED CELL DISTRIBUTION WIDTH 12.3 % (12.0-15.0); WHITE BLOOD COUNT 3.9 x10^3/uL (4.8-10.8)
[2018-05-06 12:53] LABS: ALBUMIN 4.3 g/dL (3.2-5.5); ALBUMIN/GLOBULIN RATIO 1.4 (1.0-2.2); ALKALINE PHOSPHATASE 56 IU/L (42-121); ALT ALANINE AMINOTRANSFERASE 62 IU/L (10-60); AST ASPARTATE AMINOTRANSFERASE 35 IU/L (10-42); BUN - BLOOD UREA NITROGEN 28 mg/dL (6-20); CALCIUM 9.1 mg/dL (8.5-10.3); CARBON DIOXIDE - CO2 25 mmol/L (21-32); CHLORIDE 101 mmol/L (101-111); CHOL/HDL RATIO 4.3 (<5.0); CHOLESTEROL 143 mg/dL; CREATININE 1.2 mg/dL (0.6-1.2); GFR - MDRD 60 (>89); GLUCOSE 122 mg/dL (70-100); HDL CHOLESTEROL 33 mg/dL; LDL CHOLESTEROL,CALCULATED 78 mg/dL; LDL/HDL RATIO 2.4 (<3.6); SODIUM 135 mmol/L (135-145); TOTAL PROTEIN 7.4 g/dL (6.7-8.2); VLDL CHOLESTEROL 32 mg/dL
[2018-05-06 12:59] LABS: THYROID STIMULATING HORMONE 5.98 uIU/mL (0.34-5.60)
[2018-05-06 13:29] LABS: HB2 TOTAL 15.5 g/dL; HEMOGLOBIN A1C 0.82 g/dL
[2018-05-06 14:14] LABS: FREE T4 (FREE THYROXINE) 0.71 ng/dL (0.58-1.64)
== END 2018-05-06 08:01 ==
LOC: LAB.WCP 08:00
PROVIDERS: ATTEND Family Medicine
DX: E11.9 Type 2 diabetes mellitus without complications (principal); Z12.5 Encounter for screening for malignant neoplasm of prostate; N18.3 Chronic kidney disease, stage 3 (moderate); R73.01 Impaired fasting glucose; E78.5 Hyperlipidemia, unspecified; R94.6 Abnormal results of thyroid function studies; D64.9 Anemia, unspecified
CPT/HCPCS: 36415; 80053; 80061; 83036; 84439; 84443; 85025; G0103; 83721; 84153

== ENCOUNTER 2018-12-04 08:00 | Outpatient (CLI) | payer MEDICARE, OTHER ==
[2018-12-04 12:18] LABS: CREATININE,URINE 213.4 mg/dL; MICROALBUM/CREATININE RATIO,UR 6.6 ug/mg (<30.0); MICROALBUMIN,URINE 1.4 mg/dL (0-300.0)
[2018-12-04 12:46] LABS: HB2 TOTAL 13.1 g/dL; HEMOGLOBIN A1C 0.58 g/dL; HEMOGLOBIN A1C % 6.2 % (4.6-6.2)
[2018-12-04 12:50] LABS: ALBUMIN 4.3 g/dL (3.2-5.5); ALBUMIN/GLOBULIN RATIO 1.5 (1.0-2.2); BILIRUBIN,TOTAL 0.7 mg/dL (0.2-1.0); CALCIUM 9.3 mg/dL (8.5-10.3); CREATININE 1.4 mg/dL (0.6-1.2); TOTAL PROTEIN 7.1 g/dL (6.7-8.2)
== END 2018-12-04 08:15 | disposition home or self-care (01) ==
LOC: LAB.WCP 08:00
PROVIDERS: ATTEND Family Medicine
DX: E11.9 Type 2 diabetes mellitus without complications (principal); I10 Essential (primary) hypertension; E78.5 Hyperlipidemia, unspecified
CPT/HCPCS: 36415; 80053; 82043; 82570; 83036

== ENCOUNTER 2020-01-28 08:00 | Outpatient (CLI) | payer MEDICARE, OTHER ==
[2020-01-28 19:13] LABS: BASOPHILS # (AUTO) 0.1 10^3/uL (0.0-0.1); BASOPHILS % (AUTO) 1.3 %; EOSINOPHILS # (AUTO) 0.1 10^3/uL (0.0-0.7); EOSINOPHILS % (AUTO) 1.8 %; HGB - HEMOGLOBIN 13.9 g/dL (14.0-18.0); LYMPHOCYTES # (AUTO) 0.7 10^3/uL (1.5-3.5); LYMPHOCYTES % (AUTO) 15.9 %; MEAN CORPUSCULAR HEMOGLOBIN 32.7 pg (27.0-31.0); MEAN CORPUSCULAR HGB CONC 34.2 g/dL (32.0-36.0); MEAN CORPUSCULAR VOLUME 95.8 fL (80.0-94.0); MEAN PLATELET VOLUME 9.4 fL (7.4-11.4); MONOCYTES # (AUTO) 0.4 10^3/uL (0.0-1.0); MONOCYTES % (AUTO) 8.4 %; NEUTROPHILS # (AUTO) 3.3 10^3/uL (1.5-6.6); NEUTROPHILS % (AUTO) 71.9 %; PLT - PLATELET COUNT 166 10^3/uL (130-450); RED BLOOD COUNT 4.25 10^6/uL (4.70-6.10); RED CELL DISTRIBUTION WIDTH 12.1 % (12.0-15.0); WHITE BLOOD COUNT 4.5 x10^3/uL (4.8-10.8)
[2020-01-28 19:19] LABS: CREATININE,URINE 35.9 mg/dL; MICROALBUM/CREATININE RATIO,UR 25.1 ug/mg (<30.0); MICROALBUMIN,URINE 0.9 mg/dL (0-300.0)
[2020-01-28 19:21] LABS: % IRON SATURATION 33 % (20-50); ALBUMIN 4.3 g/dL (3.2-5.5); ALBUMIN/GLOBULIN RATIO 1.3 (1.0-2.2); ALKALINE PHOSPHATASE 64 IU/L (42-121); ALT ALANINE AMINOTRANSFERASE 41 IU/L (10-60); AST ASPARTATE AMINOTRANSFERASE 29 IU/L (10-42); BILIRUBIN,TOTAL 1.1 mg/dL (0.2-1.0); BUN - BLOOD UREA NITROGEN 23 mg/dL (6-20); CALCIUM 9.8 mg/dL (8.5-10.3); CARBON DIOXIDE - CO2 24 mmol/L (21-32); CHLORIDE 103 mmol/L (101-111); CHOL/HDL RATIO 4.2 (<5.0); CHOLESTEROL 186 mg/dL; CREATININE 1.2 mg/dL (0.6-1.2); GLUCOSE 126 mg/dL (70-100); HDL CHOLESTEROL 44 mg/dL; IRON 137 ug/dL (45-182); LDL CHOLESTEROL,CALCULATED 102 mg/dL; LDL/HDL RATIO 2.3 (<3.6); SODIUM 138 mmol/L (135-145); TOTAL IRON BINDING CAPACITY 410 ug/dL (250-450); TOTAL PROTEIN 7.5 g/dL (6.7-8.2); TRANSFERRIN 293 mg/dL (180-329); VLDL CHOLESTEROL 40 mg/dL
[2020-01-28 20:55] LABS: HEMOGLOBIN A1c% 6.9 % (4.27-6.07)
== END 2020-01-28 23:59 | disposition home or self-care (01) ==
LOC: LAB.WCP 08:00
PROVIDERS: ATTEND Internal Medicine
DX: E11.9 Type 2 diabetes mellitus without complications (principal); E78.5 Hyperlipidemia, unspecified; D64.9 Anemia, unspecified; Z12.5 Encounter for screening for malignant neoplasm of prostate; R94.6 Abnormal results of thyroid function studies
CPT/HCPCS: 36415; 80053; 80061; 82043; 82570; 82607; 82728; 83036; 83540; 84443; 84466; 85025; G0103; 83721; 84153

== ENCOUNTER 2020-02-02 08:00 | Outpatient (CLI) | payer MEDICARE, OTHER ==
--- NOTE | 2020-02-02 15:46 | XRAY Report ---
PROCEDURE: Shoulder 3 View RT INDICATIONS: RIGHT SHOULDER IMPINGEMENT SYNDROME TECHNIQUE: 3 views of the shoulder were acquired. COMPARISON: None. FINDINGS: Bones: No fractures or dislocations. There is mild acromioclavicular joint degeneration. No suspicio us bony lesions. Visualized ribs appear intact. Soft tissues: No suspicious soft tissue calcifications. IMPRESSION: 1. Mild acromioclavicular joint generation. Reviewed by: Juaquin Spear MD on 02/02/2020 3:45 PM PST Approved by: Juaquin Spear MD on 02/02/2020 3:45 PM PST Station ID: [id number]
== END 2020-02-02 23:59 | disposition home or self-care (01) ==
LOC: DI.WCP 08:00
PROVIDERS: ATTEND Internal Medicine
DX: M19.011 Primary osteoarthritis, right shoulder (principal)

== ENCOUNTER 2021-04-06 08:00 | Outpatient (CLI) | payer MEDICARE, OTHER ==
[2021-04-06 12:05] LABS: CREATININE,URINE 87.7 mg/dL; MICROALBUMIN,URINE 1.4 mg/dL (0-300.0)
[2021-04-06 12:25] LABS: BASOPHILS % (AUTO) 1.2 %; EOSINOPHILS # (AUTO) 0.1 10^3/uL (0.0-0.7); EOSINOPHILS % (AUTO) 2.7 %; HCT - HEMATOCRIT 38.4 % (42.0-52.0); HGB - HEMOGLOBIN 13.2 g/dL (14.0-18.0); LYMPHOCYTES # (AUTO) 1.2 10^3/uL (1.5-3.5); LYMPHOCYTES % (AUTO) 34.3 %; MEAN CORPUSCULAR HEMOGLOBIN 32.6 pg (27.0-31.0); MEAN CORPUSCULAR HGB CONC 34.4 g/dL (32.0-36.0); MEAN CORPUSCULAR VOLUME 94.8 fL (80.0-94.0); MEAN PLATELET VOLUME 9.4 fL (7.4-11.4); MONOCYTES # (AUTO) 0.4 10^3/uL (0.0-1.0); MONOCYTES % (AUTO) 11.9 %; NEUTROPHILS # (AUTO) 1.7 10^3/uL (1.5-6.6); NEUTROPHILS % (AUTO) 49.6 %; PLT - PLATELET COUNT 171 10^3/uL (130-450); RED BLOOD COUNT 4.05 10^6/uL (4.70-6.10); RED CELL DISTRIBUTION WIDTH 12.2 % (12.0-15.0); WHITE BLOOD COUNT 3.4 x10^3/uL (4.8-10.8)
[2021-04-06 12:49] LABS: THYROID STIMULATING HORMONE 5.61 uIU/mL (0.34-5.60)
[2021-04-06 12:54] LABS: ALBUMIN 4.2 g/dL (3.2-5.5); ALBUMIN/GLOBULIN RATIO 1.6 (1.0-2.2); ALKALINE PHOSPHATASE 55 IU/L (42-121); ALT ALANINE AMINOTRANSFERASE 33 IU/L (10-60); AST ASPARTATE AMINOTRANSFERASE 25 IU/L (10-42); BILIRUBIN,TOTAL 0.9 mg/dL (0.2-1.0); BUN - BLOOD UREA NITROGEN 27 mg/dL (6-20); CARBON DIOXIDE - CO2 25 mmol/L (21-32); CHLORIDE 104 mmol/L (101-111); CHOL/HDL RATIO 5.3 (<5.0); CHOLESTEROL 169 mg/dL; CREATININE 1.5 mg/dL (0.6-1.2); GFR - MDRD 46 (>89); GLUCOSE 126 mg/dL (70-100); HDL CHOLESTEROL 32 mg/dL; LDL CHOLESTEROL,CALCULATED 107 mg/dL; LDL/HDL RATIO 3.3 (<3.6); POTASSIUM 4.6 mmol/L (3.5-5.0); SODIUM 136 mmol/L (135-145); TOTAL PROTEIN 6.9 g/dL (6.7-8.2); TRIGLYCERIDES 149 mg/dL; VLDL CHOLESTEROL 30 mg/dL
[2021-04-06 12:57] LABS: ESTIMATED AVERAGE GLUCOSE 166 mg/dL (70-100); HEMOGLOBIN A1c% 7.4 % (4.27-6.07)
[2021-04-06 13:28] LABS: FREE T4 (FREE THYROXINE) 0.64 ng/dL (0.58-1.64)
== END 2021-04-06 23:59 | disposition home or self-care (01) ==
LOC: LAB.WCP 08:00
PROVIDERS: ATTEND Internal Medicine
DX: I10 Essential (primary) hypertension (principal); E11.9 Type 2 diabetes mellitus without complications; Z12.5 Encounter for screening for malignant neoplasm of prostate; E78.5 Hyperlipidemia, unspecified
CPT/HCPCS: 36415; 80053; 80061; 82043; 82570; 83036; 84439; 84443; 85025; G0103; 83721; 84153

== ENCOUNTER 2021-07-09 09:10 | Outpatient (CLI) | payer MEDICARE, OTHER ==
[2021-07-09 15:06] LABS: BUN - BLOOD UREA NITROGEN 24 mg/dL (6-20); CALCIUM 8.9 mg/dL (8.5-10.3); CARBON DIOXIDE - CO2 24 mmol/L (21-32); CHLORIDE 100 mmol/L (101-111); CHOL/HDL RATIO 6.3 (<5.0); CHOLESTEROL 239 mg/dL; CREATININE 1.4 mg/dL (0.6-1.2); GFR - MDRD 49 (>89); GLUCOSE 144 mg/dL (70-100); HDL CHOLESTEROL 38 mg/dL; POTASSIUM 4.3 mmol/L (3.5-5.0); SODIUM 133 mmol/L (135-145); TRIGLYCERIDES 414 mg/dL
[2021-07-09 15:42] LABS: LDL CHOLESTEROL,DIRECT 102 mg/dL; LDLD/HDL RATIO 2.7 (<3.6)
[2021-07-09 21:38] LABS: ESTIMATED AVERAGE GLUCOSE 157 mg/dL (70-100); HEMOGLOBIN A1c% 7.1 % (4.27-6.07)
== END 2021-07-09 09:11 | disposition home or self-care (01) ==
LOC: LAB.N 09:10
PROVIDERS: ATTEND Internal Medicine
DX: E11.9 Type 2 diabetes mellitus without complications (principal); R94.6 Abnormal results of thyroid function studies; E78.5 Hyperlipidemia, unspecified
CPT/HCPCS: 36415; 80048; 80061; 83036; 83721; 84443

== ENCOUNTER 2022-05-04 09:29 | Outpatient (CLI) | payer MEDICARE, OTHER ==
[2022-05-04 12:02] LABS: EOSINOPHILS # (AUTO) 0.1 10^3/uL (0.0-0.7); EOSINOPHILS % (AUTO) 1.9 %; HCT - HEMATOCRIT 38.9 % (42.0-52.0); HGB - HEMOGLOBIN 13.3 g/dL (14.0-18.0); LYMPHOCYTES # (AUTO) 1.3 10^3/uL (1.5-3.5); MEAN CORPUSCULAR HEMOGLOBIN 32.6 pg (27.0-31.0); MEAN CORPUSCULAR HGB CONC 34.2 g/dL (32.0-36.0); MEAN CORPUSCULAR VOLUME 95.3 fL (80.0-94.0); MEAN PLATELET VOLUME 9.2 fL (7.4-11.4); MONOCYTES # (AUTO) 0.4 10^3/uL (0.0-1.0); MONOCYTES % (AUTO) 10.2 %; NEUTROPHILS # (AUTO) 2.3 10^3/uL (1.5-6.6); NEUTROPHILS % (AUTO) 55.4 %; PLT - PLATELET COUNT 180 10^3/uL (130-450); RED BLOOD COUNT 4.08 10^6/uL (4.70-6.10); RED CELL DISTRIBUTION WIDTH 12.6 % (12.0-15.0); WHITE BLOOD COUNT 4.1 x10^3/uL (4.8-10.8)
[2022-05-04 12:44] LABS: ALBUMIN 4.1 g/dL (3.2-5.5); ALBUMIN/GLOBULIN RATIO 1.4 (1.0-2.2); ALKALINE PHOSPHATASE 60 IU/L (42-121); ALT ALANINE AMINOTRANSFERASE 32 IU/L (10-60); AST ASPARTATE AMINOTRANSFERASE 24 IU/L (10-42); BILIRUBIN,TOTAL 0.9 mg/dL (0.2-1.0); BUN - BLOOD UREA NITROGEN 26 mg/dL (6-20); CALCIUM 9.1 mg/dL (8.5-10.3); CARBON DIOXIDE - CO2 26 mmol/L (21-32); CHLORIDE 104 mmol/L (101-111); CHOL/HDL RATIO 4.5 (<5.0); CHOLESTEROL 188 mg/dL; CREATININE 1.3 mg/dL (0.6-1.2); GFR - MDRD 54 (>89); GLUCOSE 149 mg/dL (70-100); HDL CHOLESTEROL 42 mg/dL; LDL CHOLESTEROL,CALCULATED 109 mg/dL; LDL/HDL RATIO 2.6 (<3.6); POTASSIUM 4.5 mmol/L (3.5-5.0); SODIUM 134 mmol/L (135-145); TOTAL PROTEIN 7.1 g/dL (6.7-8.2); TRIGLYCERIDES 183 mg/dL; VLDL CHOLESTEROL 37 mg/dL
[2022-05-04 12:47] LABS: THYROID STIMULATING HORMONE 4.22 uIU/mL (0.34-5.60)
[2022-05-04 13:08] LABS: ESTIMATED AVERAGE GLUCOSE 166 mg/dL (70-100); HEMOGLOBIN A1c% 7.4 % (4.27-6.07)
[2022-05-04 13:18] LABS: CREATININE,URINE 102.9 mg/dL; MICROALBUM/CREATININE RATIO,UR 24.3 ug/mg (<30.0); MICROALBUMIN,URINE 2.5 mg/dL (0-300.0)
== END 2022-05-04 09:30 | disposition home or self-care (01) ==
LOC: LAB.N 09:29
PROVIDERS: ATTEND Internal Medicine
DX: E78.5 Hyperlipidemia, unspecified (principal); E11.9 Type 2 diabetes mellitus without complications; E03.9 Hypothyroidism, unspecified
CPT/HCPCS: 36415; 80053; 80061; 82043; 82570; 83036; 83721; 84443; 85025

== ENCOUNTER 2022-08-15 11:45 | Outpatient (CLI) | payer MEDICARE, OTHER ==
--- NOTE | 2022-08-15 18:00 | XRAY Report ---
PROCEDURE: Shoulder 3 View RT INDICATIONS: BICEPS TENDINITIS OF THE RIGHT SHOULDER TECHNIQUE: 3 views of the shoulder were acquired. COMPARISON: None. FINDINGS: Bones: No fractures or dislocations. No suspicious bony lesions. Visualized ribs appear intact. Soft tissues: No suspicious soft tissue calcifications. IMPRESSION: Unremarkable right shoulder radiographs Reviewed by: Sunny Gallego MD on 08/15/2022 4:58 PM [facility] Approved by: Sunny Gallego MD on 08/15/2022 4:58 PM [facility]DT Station ID: [id number]
== END 2022-08-15 12:00 | disposition home or self-care (01) ==
LOC: DI.N 11:45
PROVIDERS: ATTEND Emergency Medicine
DX: M75.21 Bicipital tendinitis, right shoulder (principal)

== ENCOUNTER 2023-09-25 08:10 | Outpatient (CLI) | payer MEDICARE, OTHER ==
[2023-09-25 13:36] LABS: ALBUMIN 4.3 g/dL (3.2-5.5); ALBUMIN/GLOBULIN RATIO 1.7 (1.0-2.2); ALKALINE PHOSPHATASE 72 IU/L (42-121); ALT ALANINE AMINOTRANSFERASE 23 IU/L (10-60); AST ASPARTATE AMINOTRANSFERASE 17 IU/L (10-42); BILIRUBIN,TOTAL 0.7 mg/dL (0.2-1.0); BUN - BLOOD UREA NITROGEN 24 mg/dL (6-20); CALCIUM 9.1 mg/dL (8.5-10.3); CARBON DIOXIDE - CO2 23 mmol/L (21-32); CHLORIDE 106 mmol/L (101-111); CHOL/HDL RATIO 4.6 (<5.0); CHOLESTEROL 173 mg/dL; CREATININE 1.5 mg/dL (0.6-1.3); GFR - MDRD 45 (>89); GLUCOSE 153 mg/dL (74-104); HDL CHOLESTEROL 38 mg/dL; LDL CHOLESTEROL,CALCULATED 86 mg/dL; LDL/HDL RATIO 2.3 (<3.6); POTASSIUM 4.6 mmol/L (3.5-4.5); SODIUM 136 mmol/L (135-145); TOTAL PROTEIN 6.8 g/dL (6.4-8.9); TRIGLYCERIDES 246 mg/dL; VLDL CHOLESTEROL 49 mg/dL
[2023-09-25 13:37] LABS: CREATININE,URINE 170.4 mg/dL; MICROALBUM/CREATININE RATIO,UR 46.4 ug/mg (<30.0); MICROALBUMIN,URINE 7.9 mg/dL
[2023-09-25 13:38] LABS: ESTIMATED AVERAGE GLUCOSE 154 mg/dL (70-100)
== END 2023-09-25 08:11 | disposition home or self-care (01) ==
LOC: LAB.N 08:10
PROVIDERS: ATTEND Internal Medicine
DX: E11.9 Type 2 diabetes mellitus without complications (principal); E78.5 Hyperlipidemia, unspecified
CPT/HCPCS: 36415; 80053; 80061; 82043; 82570; 83036; 83721